=== PATIENT | male | born 1955 | race Caucasian/White ===

== ENCOUNTER 2017-04-23 07:08 | Day surgery (SDC) | payer OTHER, MEDICARE ==
[2017-04-20 09:47] LABS: HEMOGLOBIN 14.4 g/dL (13.6-17.8)
[2017-04-20 09:48] LABS: HEMATOCRIT 41.9 % (40.0-51.0)
[2017-04-20 10:03] LABS: BUN (BLOOD UREA NITROGEN) 23 MG/DL (6-23); CALCIUM, SERUM 9.4 MG/DL (8.5-10.4); CHLORIDE, SERUM 105 MMOL/L (96-112); CO2 (CARBON DIOXIDE) 24 MMOL/L (24-34); CREATININE 1.54 MG/DL (0.70-1.30); GFR AFRICAN AMERICAN 55 ML/MIN (>=60); GFR NON AFRICAN AMERICAN 47 ML/MIN (>=60); POTASSIUM, SERUM 5.3 MMOL/L (3.5-5.3); SODIUM, SERUM 138 MMOL/L (135-148)
[2017-04-20 10:04] LABS: GLUCOSE, SERUM 144 MG/DL (60-99)
[~2017-04-23] VITALS: Ht 185.4 cm; Wt 140.2 kg
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
[~2017-04-23 07:08] MED LIST: AMARYL4 PO; ASAB PO; CIP2 PO; COZAAR100 MG PO; FLOMAX4 PO; GLUCPH PO; HALF81; IBU800 PO; JANUVIA100 MG PO; LISINOPRIL40 MG PO; PCET PO; ZOCOR40 PO
== END 2017-04-23 13:38 | disposition home or self-care (01) ==
LOC: SDC 07:08
PROVIDERS: Urology
PROC: 0TND8ZZ Release Urethra, Via Natural or Artificial Opening Endoscopic (ICD-10-PCS; principal; 2017-04-23 08:45)
DX: N35.9 Urethral stricture, unspecified (principal); E66.9 Obesity, unspecified; I12.9 Hypertensive chronic kidney disease with stage 1 through stage 4 chronic kidney disease, or unspecified chronic kidney disease; E11.22 Type 2 diabetes mellitus with diabetic chronic kidney disease; N18.9 Chronic kidney disease, unspecified; G89.29 Other chronic pain; M54.9 Dorsalgia, unspecified; Z90.5 Acquired absence of kidney; Z98.890 Other specified postprocedural states; Z79.899 Other long term (current) drug therapy; Z68.41 Body mass index [BMI] 40.0-44.9, adult
CPT/HCPCS: 80048; 82962; 85014; 85018; 93005; J2250; J2370; J2405; J3010